=== PATIENT | male | born 1980 | race Hispanic/Latino ===

== ENCOUNTER 2022-11-21 20:50 | Emergency (ER) | payer SELFPAY ==
[2022-11-21] MEDS ORDERED: LIDOCAINE 1% MPF 5 ML VIAL ONE (21:20)
--- NOTE | 2022-11-21 21:40 | ER ---
Nurse's Notes [facility] Name: Teodoro Toussaint Age: 41 yrs Sex: Male : 1980 Arrival Date: 11/21/2022 Time: 20:50 Bed 13 Private MD: Diagnosis: Auricular hematoma Presentation: 11/21 20:57 Chief complaint: Patient states: Patient C/O right ear pain with swelling,onset 8 days pf1 ago. 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 Patient stated when drained right ear only clear liquid came out. Coronavirus screen: Vaccine status: Patient reports receiving the 2nd dose of the covid vaccine. [employer] Client denies travel out of the [place] in the last 14 days. At this time, the client does not indicate any symptoms associated with coronavirus-19. Ebola Screen: Patient negative for fever greater than or equal to 101.5 degrees Fahrenheit, and additional compatible Ebola Virus Disease symptoms. Initial Sepsis Screen: Does the patient meet any 2 criteria? HR > 90 bpm. No. Patient's initial sepsis screen is negative. Does the patient have a suspected source of infection? No. Patient's initial sepsis screen is negative. Risk Assessment: Do you want to hurt yourself or someone else? Patient reports no desire to harm self or others. 20:57 Method Of Arrival: Ambulatory pf1 20:57 Acuity: RULA 4 pf1 Triage Assessment: 21:46 General: Appears in no apparent distress. uncomfortable, Behavior is calm, cooperative, vc1 appropriate for age. Pain: Complains of pain in pinna of right ear. Historical: - Allergies: 21:04 No Known Allergies; pf1 - Home Meds: 21:04 None [Active]; pf1 - PMHx: 21:04 None; pf1 - PSHx: 21:04 None; pf1 Screenin:46 [facility] ED Fall Risk Assessment (Adult) History of falling in the last 3 months, vc1 including since admission No falls in past 3 months (0 pts) Confusion or Disorientation No (0 pts) Intoxicated or Sedated No (0 pts) Impaired Gait No (0 pts) Mobility Assist Device Used No (0 pt) Altered Elimination No (0 pt) Score/Fall Risk Level 0 - 2 = Low Risk Oriented to surroundings, Maintained a safe environment, Educated pt \T\ family on fall prevention, incl call for assistance when getting out of bed. Abuse screen: Denies threats or abuse. Nutritional screening: No deficits noted. Tuberculosis screening: No symptoms or risk factors identified. Vital Signs: 20:57 BP 155 / 92; Pulse 105; Resp 18; Temp 98.7; Pulse Ox 100% ; Weight 86.18 kg; Height 5 pf1 ft. 3 in. ; Pain 0/10; 20:57 Body Mass Index 33.66 (86.18 kg, 160.02 cm) pf1 20:57 Pain Scale: Adult pf1 ED Course: 20:54 Patient arrived in ED. es 20:56 Rosaline Dyer FNP-C is [facility]. kb 20:56 Igor Gonzalez MD is Attending Physician. kb 21:04 Triage completed. pf1 21:13 Lorene Brown, RN is Primary Nurse. vc1 21:46 Arm band placed on right wrist. vc1 21:47 No provider procedures requiring assistance completed. Patient did not have IV access vc1 during this emergency room visit. Administered Medications: No medications were administered Medication: 21:47 VIS not applicable for this client. vc1 Outcome: 21:39 Discharge ordered by MD. kb 21:47 Discharged to home ambulatory, with significant other. vc1 21:47 Condition: good 21:47 Discharge instructions given to patient, significant other, Instructed on discharge instructions, follow up and referral plans. wound care, Demonstrated understanding of instructions, follow-up care, wound care. 21:47 Patient left the ED. vc1 Signatures: Rosaline Dyer FNP-C FNP-Ckb Salyer, Edna Lorene Brown, RN RN vc1 Litzy gandara, LOGAN RN pf1 Corrections: (The following items were deleted from the chart) 21:05 20:57 Chief complaint: Patient states: Patient C/O right ear pain with swelling,onset 8 pf1 days ago. 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 Patient stated when drained right ear only clear liquid came out. pf1
--- NOTE | 2022-11-21 21:40 | EDPHYS ---
Physician Documentation [facility] Name: Teodoro Toussaint Age: 41 yrs Sex: Male : 1980 Arrival Date: 11/21/2022 Time: 20:50 Bed 13 Private MD: ED Physician Igor Gonzalez HPI: 11/21 21:17 This 41 yrs old Male presents to ER via Ambulatory with complaints of Swelling kb of ear. 21:48 The patient has not experienced similar symptoms in the past. The patient has not kb recently seen a physician. 21:52 The patient presents with swelling. The complaints affect the pinna of right ear. kb Onset: The symptoms/episode began/occurred 10 day(s) ago. Modifying factors: The symptoms are alleviated by nothing, the symptoms are aggravated by nothing. Associated signs and symptoms: The patient has no apparent associated signs or symptoms. Severity of symptoms: At their worst the symptoms were moderate in the emergency department the symptoms are unchanged. 21:52 Pt reports swelling to right ear that started 10 days ago. Denies pain, injury, trauma, kb fever. 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 . Historical: - Allergies: 21:04 No Known Allergies; pf1 - Home Meds: 21:04 None [Active]; pf1 - PMHx: 21:04 None; pf1 - PSHx: 21:04 None; pf1 ROS: 21:14 Constitutional: Negative for fever, chills, and weight loss. kb 21:14 Skin: Positive for swelling, of the pinna of right ear. 21:14 All other systems are negative. Exam: 21:14 Constitutional: This is a well developed, well nourished patient who is awake, alert, kb and in no acute distress. Head/Face: Normocephalic, atraumatic. Cardiovascular: Regular rate and rhythm with a normal S1 and S2. No gallops, murmurs, or rubs. No pulse deficits. Respiratory: Respirations even and unlabored. No increased work of breathing. Talking in full sentences Skin: Warm, dry with normal turgor. Normal color. MS/ Extremity: Pulses equal, no cyanosis. Neurovascular intact. Full, normal range of motion. Neuro: Awake and alert, GCS 15, oriented to person, place, time, and situation. Moves all extremities. Normal gait. 21:14 ENT: External ear(s): abscess, that is moderate, of the pinna of right ear. Vital Signs: 20:57 BP 155 / 92; Pulse 105; Resp 18; Temp 98.7; Pulse Ox 100% ; Weight 86.18 kg; Height 5 pf1 ft. 3 in. ; Pain 0/10; 20:57 Body Mass Index 33.66 (86.18 kg, 160.02 cm) pf1 20:57 Pain Scale: Adult pf1 Procedures: 21:50 I \T\ D: Incision and drainage was performed for an abscess of the pinna of right ear kb Prepped with chlorahexidine. Anesthetized with 1 ml's 1% Lidocaine. Incised with #11 blade. Drained moderate amount bloody fluid. Dressing: sterile 4x4 gauze, metal/foam splint the patient tolerated the procedure well. MDM: 20:56 Patient medically screened. kb 21:14 Data reviewed: vital signs, nurses notes. kb 21:35 Differential diagnosis: abscess, hematoma, cellulitis, allergic reaction. Counseling: I kb had a detailed discussion with the patient and/or guardian regarding: the historical points, exam findings, and any diagnostic results supporting the discharge/admit diagnosis, the need for outpatient follow up, an ENT specialist, to return to the emergency department if symptoms worsen or persist or if there are any questions or concerns that arise at home. 11/21 21:10 Order name: I\T\D Setup; Complete Time: 21:18 kb Administered Medications: No medications were administered Disposition: 22:42 Co-signature as Attending Physician, Igor Gonzalez MD I reviewed the patient's care rn provided by the Advanced Practice Provider and agree with the diagnosis and treatment plan. Disposition Summary: 11/21/22 21:39 Discharge Ordered Location: Home kb Condition: Stable kb Diagnosis - Auricular hematoma kb Followup: kb - With: Emergency Department - When: As needed - Reason: Worsening of condition Followup: kb - With: Private Physician - When: 2 - 3 days - Reason: Recheck today's complaints, Continuance of care, Re-evaluation by your physician Discharge Instructions: - Discharge Summary Sheet kb - Hematoma, [id number] kb Forms: - Medication Reconciliation Form kb - Thank You Letter kb - Antibiotic Education kb - Prescription Opioid Use kb Signatures: Rosaline Dyer, PERSONAL INJURY PARALEGAL-C PERSONAL INJURY PARALEGAL-Igor Vanessa MD MD rn finley, Pamala, RN RN pf1
[2022-11-21 21:53] VITALS: BP 155/92; TEMP 98.7; O2SAT 100
== END 2022-11-21 21:47 | disposition home or self-care (01) ==
LOC: ER 20:50
PROC: 0H92XZZ Drainage of Right Ear Skin, External Approach (ICD-10-PCS; principal; 2022-11-21)
DX: H60.01 Abscess of right external ear (principal)
CPT/HCPCS: 99282; J2001